=== PATIENT | male | born 1955 | race Hispanic/Latino ===

== ENCOUNTER 2020-05-15 16:27 | Inpatient (IN) | payer OTHER ==
[~2020-05-15] VITALS: Ht 165.1 cm; Wt 80.7 kg
[2020-05-15] MEDS ORDERED: FENTANYL CITRATE PF 50 MCG/1 ML 2ML VIAL ONE (16:45)
[2020-05-15] MEDS ORDERED: SODIUM CHLORIDE 0.9% 1000ML 1,000 ML IV ONE (16:45)
[2020-05-15 17:10] LABS: BASOPHILS % (AUTO) 0.2 % (0.0-5.0); EOSINOPHILS % (AUTO) 0.4 % (0.0-8.0); HEMATOCRIT 41.4 % (42-54); LYMPHOCYTES % (AUTO) 9.1 % (21.0-51.0); MEAN CORPUSCULAR HEMOGLOBIN 30.5 pg (27.0-33.0); MEAN CORPUSCULAR HGB CONC 34.8 g/dL (32.0-36.0); MEAN CORPUSCULAR VOLUME 87.7 fL (79-99); MONOCYTES % (AUTO) 8.9 % (3.0-13.0); NEUTROPHILS % (AUTO) 80.8 % (40.0-77.0); PLATELET COUNT (AUTO) 346 K/uL (130-400); RED BLOOD CELL COUNT(AUTO) 4.72 MIL/uL (4.50-6.20); RED CELL DISTRIBUTION WIDTH 11.4 % (11.0-15.5); WHITE BLOOD COUNT (AUTO) 19.3 K/uL (4.8-10.8)
[2020-05-15 17:25] LABS: CREATININE 0.8 mg/dL (0.5-1.5); POTASSIUM 4.4 mmol/L (3.5-5.1)
[2020-05-15] MEDS ORDERED: IOHEXOL-350 75 ML VIAL IV ONE (17:48)
[2020-05-15] MEDS ORDERED: ZOSYN 3.375GM+NS 50ML 50 ML IV ONE (18:08)
[2020-05-15 18:52] LABS: APPEARANCE,URINE Clear (CLEAR); BILIRUBIN,URINE Negative (NEGATIVE); COLOR,URINE Yellow (YELLOW); GLUCOSE, URINE (UA) >=1000 mg/dL (NEGATIVE); KETONES,URINE 40 mg/dL (NEGATIVE); LEUKOCYTE ESTERASE ,URINE Small (NEGATIVE); NITRATE,URINE Negative (NEGATIVE); OCCULT BLOOD,URINE Negative (NEGATIVE); PROTEIN,URINE Trace mg/dL (NEGATIVE)
[2020-05-15] MEDS ORDERED: VANCOMYCIN 1.25 GM in SODIUM CHLORIDE 0.9% 250 ML IV SCH (19:00)
[2020-05-15 19:06] LABS: BACTERIA,URINE Few /HPF (None Seen); MUCUS,URINE Few LPF (None Seen); SQUAMOUS EPITHELIAL CELL,UR Few /HPF (0-2)
[2020-05-15] MEDS ORDERED: ACETAMINOPHEN 325 MG TAB PO PRN (20:15)
[2020-05-15] MEDS ORDERED: POTASSIUM CHLORIDE 20MEQ/100ML 100 ML IV PRN ×2 (20:15)
[2020-05-15] MEDS ORDERED: POTASSIUM CHLORIDE 10% ELIXIR 20 MEQ/15 ML UDCUP PO PRN (20:15)
[2020-05-15] MEDS ORDERED: DEXTROSE 50%-WATER 50 ML DISP.SYRIN IV PRN (20:15)
[2020-05-15] MEDS ORDERED: NITROGLYCERIN 0.4 MG SL TAB SL PRN (20:15)
[2020-05-15] MEDS ORDERED: DiphenhydrAMINE HCL 50 MG/ML VIAL IV PRN (20:15)
[2020-05-15] MEDS ORDERED: VANCOMYCIN PROTOCOL PER PHARMACY IV PRN (20:15)
[2020-05-15] MEDS ORDERED: GLUCAGON 1MG KIT 1 MG ML IM PRN (20:15)
[2020-05-15] MEDS ORDERED: DIPHENHYDRAMINE HCL 25 MG CAPSULE PO PRN (20:15)
[2020-05-15] MEDS ORDERED: POTASSIUM CHLORIDE 20 MEQ ERTAB PO PRN (20:15)
[2020-05-15] MEDS ORDERED: MAG HYDROX/AL HYDROX/SIMETH ES 30 ML SUSP UDCUP PO PRN (20:15)
[2020-05-15] MEDS ORDERED: ONDANSETRON HCL 4 MG/2 ML VIAL IV PRN (20:15)
[2020-05-15] MEDS ORDERED: GUAIFENESIN-DM 200/20 MG 10 ML PO PRN (20:15)
[2020-05-15] MEDS ORDERED: VANCOMYCIN 1GM+NS 250ML 250 ML IV ONE (20:20)
[2020-05-15] MEDS: INSULIN HUMULIN R 100 UNIT/ML 3ML SQ SCH (21:00)
[2020-05-15] MEDS: HEPARIN SODIUM 5000UNIT/ML 1ML VIAL SQ SCH (21:00)
[2020-05-15] MEDS: FAMOTIDINE/PF 20 MG/2 ML VIAL IV SCH (21:00)
[2020-05-15] MEDS ORDERED: COMPOUND IV REFRIGERATED 1 EACH IVSOLN MISC PRN (21:15)
[2020-05-15] MEDS: VANCOMYCIN 750MG + NS 250 ML IV SCH ×2 (22:00)
[2020-05-15] MEDS ORDERED: HEPARIN SODIUM 5000UNIT/ML 1ML VIAL ONE (22:08)
[2020-05-15] MEDS ORDERED: HYDROMORPHONE HCL 0.5 MG/0.5 ML ML ONE (22:08)
[2020-05-15] MEDS ORDERED: FAMOTIDINE/PF 20 MG/2 ML VIAL IV ONE (22:09)
[2020-05-15] MEDS ORDERED: INSULIN HUMULIN R 100 UNIT/ML 3ML ONE (23:04)
[2020-05-16] MEDS: ZOSYN 3.375GM+NS 50ML 50 ML IV SCH ×3 (01:00→22:48)
[2020-05-16] MEDS ORDERED: ZOSYN 3.375GM+NS 50ML 50 ML IV ONE (01:25)
[2020-05-16] MEDS ORDERED: MORPHINE SULFATE 2 MG/ML 1ML SYG ONE (02:15)
[2020-05-16 04:37] LABS: BASOPHILS % (AUTO) 0.3 % (0.0-5.0); EOSINOPHILS % (AUTO) 0.4 % (0.0-8.0); HEMATOCRIT 38.9 % (42-54); LYMPHOCYTES % (AUTO) 12.3 % (21.0-51.0); MEAN CORPUSCULAR HEMOGLOBIN 30.4 pg (27.0-33.0); MEAN CORPUSCULAR HGB CONC 34.4 g/dL (32.0-36.0); MEAN CORPUSCULAR VOLUME 88.2 fL (79-99); MONOCYTES % (AUTO) 10.4 % (3.0-13.0); NEUTROPHILS % (AUTO) 75.8 % (40.0-77.0); PLATELET COUNT (AUTO) 327 K/uL (130-400); RED BLOOD CELL COUNT(AUTO) 4.41 MIL/uL (4.50-6.20); RED CELL DISTRIBUTION WIDTH 11.4 % (11.0-15.5); WHITE BLOOD COUNT (AUTO) 18.1 K/uL (4.8-10.8)
[2020-05-16 04:46] LABS: ALBUMIN 2.5 g/dL (3.5-5.0); BILIRUBIN,TOTAL 0.6 mg/dL (0.2-1.0); CREATININE 0.8 mg/dL (0.5-1.5); POTASSIUM 3.6 mmol/L (3.5-5.1); TOTAL PROTEIN, SERUM 7.1 g/dL (6.0-8.3)
[2020-05-16 04:49] LABS: HEMOGLOBIN A1C 11.7 % (4.0-6.0)
[2020-05-16 04:56] LABS: CRP QUANTITATIVE 247.6 mg/L (0.00-9.0)
[2020-05-16] MEDS ORDERED: HYDROMORPHONE HCL 0.5 MG/0.5 ML ML ONE (05:38)
[2020-05-16] MEDS: VANCOMYCIN 750MG + NS 250 ML IV SCH ×6 (06:00→22:49)
[2020-05-16] MEDS: LACTATED RINGERS 1000ML 1,000 ML IV SCH ×2 (06:15→10:29)
[2020-05-16] MEDS: INSULIN HUMULIN R 100 UNIT/ML 3ML SQ SCH ×4 (07:30→22:50)
[2020-05-16 08:26] VITALS: BP 150/80
[2020-05-16] MEDS: LISINOPRIL 10 MG TABLET PO SCH (10:31)
[2020-05-16] MEDS: HYDROMORPHONE HCL 0.5 MG/0.5 ML ML IV PRN ×2 (10:39→22:21)
[2020-05-16] MEDS: FAMOTIDINE/PF 20 MG/2 ML VIAL IV SCH ×2 (11:08→22:48)
[2020-05-16] MEDS: HEPARIN SODIUM 5000UNIT/ML 1ML VIAL SQ SCH ×2 (11:16→21:00)
[2020-05-16] MEDS: LACTULOSE 20 GM/30 ML UDCUP PO PRN (11:18)
[2020-05-16 11:48] VITALS: BP 139/65
[2020-05-16] MEDS: ACETAMINOPHEN 325 MG TAB PO PRN (16:20)
[2020-05-16 17:03] VITALS: BP 136/74
[2020-05-16] MEDS ORDERED: ATOR40TA69 PO (18:38)
[2020-05-16] MEDS ORDERED: IBUP-2077 PO (18:38)
[2020-05-16] MEDS ORDERED: LISI20TA24 PO (18:38)
[2020-05-16] MEDS ORDERED: METF500S7 PO (18:38)
[2020-05-16] MEDS ORDERED: NAPR-1023 PO (18:38)
[2020-05-16 19:54] VITALS: BP 128/73
[2020-05-16] MEDS ORDERED: IRON SUCROSE COMPLEX 100 MG in SODIUM CHLORIDE 0.9% 50 ML IV SCH (21:00)
[2020-05-17] VITALS (7 sets, daily range): BP systolic 125–156; BP diastolic 67–79
[2020-05-17] MEDS: MORPHINE SULFATE 2 MG/ML 1ML SYG IV PRN ×3 (01:16→20:55)
[2020-05-17] MEDS: HYDROMORPHONE HCL 0.5 MG/0.5 ML ML IV PRN ×4 (05:20→22:39)
[2020-05-17] MEDS: ZOSYN 3.375GM+NS 50ML 50 ML IV SCH ×3 (05:23→20:53)
[2020-05-17] MEDS: INSULIN HUMULIN R 100 UNIT/ML 3ML SQ SCH ×4 (05:31→22:42)
[2020-05-17 06:02] LABS: BASOPHILS % (AUTO) 0.3 % (0.0-5.0); EOSINOPHILS % (AUTO) 0.7 % (0.0-8.0); HEMATOCRIT 38.9 % (42-54); LYMPHOCYTES % (AUTO) 11.4 % (21.0-51.0); MEAN CORPUSCULAR HEMOGLOBIN 30.1 pg (27.0-33.0); MEAN CORPUSCULAR HGB CONC 33.7 g/dL (32.0-36.0); MEAN CORPUSCULAR VOLUME 89.4 fL (79-99); MONOCYTES % (AUTO) 10.5 % (3.0-13.0); NEUTROPHILS % (AUTO) 76.1 % (40.0-77.0); PLATELET COUNT (AUTO) 325 K/uL (130-400); RED BLOOD CELL COUNT(AUTO) 4.35 MIL/uL (4.50-6.20); RED CELL DISTRIBUTION WIDTH 11.5 % (11.0-15.5)
[2020-05-17 06:31] LABS: ALBUMIN 2.3 g/dL (3.5-5.0); BILIRUBIN,TOTAL 0.7 mg/dL (0.2-1.0); CREATININE 0.9 mg/dL (0.5-1.5); POTASSIUM 3.6 mmol/L (3.5-5.1); TOTAL PROTEIN, SERUM 7.1 g/dL (6.0-8.3)
[2020-05-17] MEDS ORDERED: SUCCINYLCHOLINE 200MG/10ML SYR ONE (07:26)
[2020-05-17] MEDS ORDERED: PROPOFOL 10 MG/ML 20ML VIAL IV ONE (07:26)
[2020-05-17] MEDS ORDERED: MIDAZOLAM HCL 1 MG/ML 2ML VIAL ONE (07:26)
[2020-05-17] MEDS ORDERED: LIDOCAINE PF 2% 5ML ABBOJECT ONE (07:26)
[2020-05-17] MEDS ORDERED: DEXAMETHASONE SOD PHOSPHATE 10MG/ML 1ML VIAL ONE (07:26)
[2020-05-17] MEDS ORDERED: FENTANYL CITRATE PF 50 MCG/1 ML 2ML VIAL ONE (07:27)
[2020-05-17] MEDS ORDERED: IRON SUCROSE COMPLEX 100 MG in SODIUM CHLORIDE 0.9% 50 ML IV SCH (09:00)
[2020-05-17] MEDS: HEPARIN SODIUM 5000UNIT/ML 1ML VIAL SQ SCH ×2 (09:00→20:54)
[2020-05-17] MEDS: FAMOTIDINE/PF 20 MG/2 ML VIAL IV SCH ×2 (10:00→20:53)
[2020-05-17] MEDS: VANCOMYCIN 1.25 GM in SODIUM CHLORIDE 0.9% 250 ML IV SCH ×2 (10:00→20:54)
[2020-05-17] MEDS: LISINOPRIL 10 MG TABLET PO SCH (10:00)
[2020-05-17] MEDS: ACETAMINOPHEN 325 MG TAB PO PRN (22:40)
[2020-05-18] VITALS (19 sets, daily range): BP systolic 121–161; BP diastolic 68–81
[2020-05-18] MEDS: ZOSYN 3.375GM+NS 50ML 50 ML IV SCH ×3 (04:27→20:48)
[2020-05-18] MEDS: HYDROMORPHONE HCL 0.5 MG/0.5 ML ML IV PRN (04:32)
[2020-05-18 05:03] LABS: BASOPHILS % (AUTO) 0.3 % (0.0-5.0); EOSINOPHILS % (AUTO) 1.5 % (0.0-8.0); HEMATOCRIT 38.3 % (42-54); LYMPHOCYTES % (AUTO) 12.9 % (21.0-51.0); MEAN CORPUSCULAR HEMOGLOBIN 30.1 pg (27.0-33.0); MEAN CORPUSCULAR HGB CONC 33.7 g/dL (32.0-36.0); MEAN CORPUSCULAR VOLUME 89.5 fL (79-99); MONOCYTES % (AUTO) 10.5 % (3.0-13.0); NEUTROPHILS % (AUTO) 73.8 % (40.0-77.0); PLATELET COUNT (AUTO) 326 K/uL (130-400); RED BLOOD CELL COUNT(AUTO) 4.28 MIL/uL (4.50-6.20); RED CELL DISTRIBUTION WIDTH 11.5 % (11.0-15.5); WHITE BLOOD COUNT (AUTO) 17.6 K/uL (4.8-10.8)
[2020-05-18 05:24] LABS: ALBUMIN 2.3 g/dL (3.5-5.0); BILIRUBIN,TOTAL 0.7 mg/dL (0.2-1.0); CREATININE 0.8 mg/dL (0.5-1.5); POTASSIUM 3.4 mmol/L (3.5-5.1); TOTAL PROTEIN, SERUM 7.1 g/dL (6.0-8.3)
[2020-05-18 05:50] LABS: CRP QUANTITATIVE 184.8 mg/L (0.00-9.0)
[2020-05-18] MEDS: MORPHINE SULFATE 2 MG/ML 1ML SYG IV PRN (05:57)
[2020-05-18] MEDS: INSULIN HUMULIN R 100 UNIT/ML 3ML SQ SCH ×4 (05:58→20:51)
[2020-05-18] MEDS: HEPARIN SODIUM 5000UNIT/ML 1ML VIAL SQ SCH ×2 (09:00→20:47)
[2020-05-18] MEDS: FAMOTIDINE/PF 20 MG/2 ML VIAL IV SCH ×2 (09:00→20:48)
[2020-05-18] MEDS: LISINOPRIL 10 MG TABLET PO SCH (09:00)
[2020-05-18] MEDS: VANCOMYCIN 1.25 GM in SODIUM CHLORIDE 0.9% 250 ML IV SCH ×2 (09:38→21:36)
[2020-05-18] MEDS ORDERED: SUCCINYLCHOLINE CHLORIDE 20 MG/ML 10 ML VIAL ONE (11:05)
[2020-05-18] MEDS ORDERED: FENTANYL CITRATE PF 50 MCG/1 ML 2ML VIAL ONE (11:05)
[2020-05-18] MEDS ORDERED: MIDAZOLAM HCL 1 MG/ML 2ML VIAL ONE ×3 (11:05→11:53)
[2020-05-18] MEDS ORDERED: LIDOCAINE HCL-MPF 1% 5ML AMP IJ ONE (11:05)
[2020-05-18] MEDS ORDERED: PROPOFOL 10 MG/ML 20ML VIAL IV ONE (11:05)
[2020-05-18] MEDS ORDERED: LIDOCAINE HCL 1% 20 ML VIAL ONE (11:27)
[2020-05-18] MEDS ORDERED: BUPIVACAINE/PF 0.25% 50ML VIAL IJ ONE (11:27)
[2020-05-18] MEDS ORDERED: CEFAZOLIN SODIUM 1 GM VIAL IRRIG ONE (11:33)
[2020-05-18] MEDS ORDERED: CHLORPROMAZINE HCL 25 MG/ML 1ML AMP IV SCH (12:45)
[2020-05-18] MEDS: CHLORPROMAZINE HCL 25 MG/ML 1ML AMP IM SCH (13:01)
[2020-05-19] VITALS (7 sets, daily range): BP systolic 118–143; BP diastolic 64–76
[2020-05-19] MEDS: ZOSYN 3.375GM+NS 50ML 50 ML IV SCH ×3 (04:22→22:00)
[2020-05-19] MEDS: ACETAMINOPHEN 325 MG TAB PO PRN (07:13)
[2020-05-19] MEDS: INSULIN HUMULIN R 100 UNIT/ML 3ML SQ SCH ×4 (07:14→21:59)
[2020-05-19] MEDS: HYDROMORPHONE HCL 0.5 MG/0.5 ML ML IV PRN ×3 (08:59→22:02)
[2020-05-19] MEDS: FAMOTIDINE/PF 20 MG/2 ML VIAL IV SCH ×2 (09:02→21:58)
[2020-05-19] MEDS: HEPARIN SODIUM 5000UNIT/ML 1ML VIAL SQ SCH ×2 (09:02→21:59)
[2020-05-19] MEDS: LISINOPRIL 10 MG TABLET PO SCH (09:03)
[2020-05-19] MEDS: VANCOMYCIN 1.25 GM in SODIUM CHLORIDE 0.9% 250 ML IV SCH ×2 (09:14→22:00)
[2020-05-19] MEDS: CHLORPROMAZINE HCL 25 MG/ML 1ML AMP IM SCH (14:02)
[2020-05-20] MEDS: HYDROMORPHONE HCL 0.5 MG/0.5 ML ML IV PRN ×3 (02:42→14:01)
[2020-05-20 03:31] VITALS: BP 143/74
[2020-05-20] MEDS: ZOSYN 3.375GM+NS 50ML 50 ML IV SCH ×3 (05:09→20:34)
[2020-05-20] MEDS: INSULIN HUMULIN R 100 UNIT/ML 3ML SQ SCH ×4 (05:50→20:36)
[2020-05-20 05:53] LABS: BASOPHILS % (AUTO) 0.3 % (0.0-5.0); EOSINOPHILS % (AUTO) 1.9 % (0.0-8.0); HEMATOCRIT 38.3 % (42-54); LYMPHOCYTES % (AUTO) 11.7 % (21.0-51.0); MEAN CORPUSCULAR HEMOGLOBIN 30.1 pg (27.0-33.0); MEAN CORPUSCULAR HGB CONC 33.2 g/dL (32.0-36.0); MEAN CORPUSCULAR VOLUME 90.8 fL (79-99); MONOCYTES % (AUTO) 8.4 % (3.0-13.0); NEUTROPHILS % (AUTO) 76.4 % (40.0-77.0); PLATELET COUNT (AUTO) 373 K/uL (130-400); RED BLOOD CELL COUNT(AUTO) 4.22 MIL/uL (4.50-6.20); RED CELL DISTRIBUTION WIDTH 11.6 % (11.0-15.5); WHITE BLOOD COUNT (AUTO) 17.2 K/uL (4.8-10.8)
[2020-05-20 06:08] LABS: CREATININE 0.9 mg/dL (0.5-1.5); POTASSIUM 3.4 mmol/L (3.5-5.1)
[2020-05-20] MEDS ORDERED: POTASSIUM CHLORIDE 10% ELIXIR 20 MEQ/15 ML UDCUP PO SCH (07:30)
[2020-05-20] MEDS: LISINOPRIL 10 MG TABLET PO SCH (08:37)
[2020-05-20] MEDS: POTASSIUM CHLORIDE 10% ELIXIR 20 MEQ/15 ML UDCUP PO SCH (08:37)
[2020-05-20] MEDS: HEPARIN SODIUM 5000UNIT/ML 1ML VIAL SQ SCH ×2 (08:38→20:35)
[2020-05-20] MEDS: FAMOTIDINE/PF 20 MG/2 ML VIAL IV SCH ×2 (08:38→20:34)
[2020-05-20] MEDS: VANCOMYCIN 1.25 GM in SODIUM CHLORIDE 0.9% 250 ML IV SCH ×2 (09:00→20:35)
[2020-05-20 09:02] VITALS: BP 145/79
[2020-05-20 11:00] VITALS: BP 141/79
[2020-05-20 16:45] VITALS: BP 139/81
[2020-05-20 20:43] VITALS: BP 163/85
[2020-05-20 20:46] VITALS: BP_SYST 109; BP_SYST 163; BP_DIAS 40; BP_DIAS 85
[2020-05-20] MEDS: MORPHINE SULFATE 2 MG/ML 1ML SYG IV PRN (23:05)
[2020-05-21] VITALS (7 sets, daily range): BP systolic 120–144; BP diastolic 62–81
[2020-05-21 04:58] LABS: BASOPHILS % (AUTO) 0.4 % (0.0-5.0); EOSINOPHILS % (AUTO) 2.6 % (0.0-8.0); HEMATOCRIT 37.3 % (42-54); LYMPHOCYTES % (AUTO) 13.8 % (21.0-51.0); MEAN CORPUSCULAR HEMOGLOBIN 30.1 pg (27.0-33.0); MEAN CORPUSCULAR HGB CONC 33.8 g/dL (32.0-36.0); MONOCYTES % (AUTO) 8.4 % (3.0-13.0); NEUTROPHILS % (AUTO) 73.4 % (40.0-77.0); PLATELET COUNT (AUTO) 390 K/uL (130-400); RED BLOOD CELL COUNT(AUTO) 4.19 MIL/uL (4.50-6.20); RED CELL DISTRIBUTION WIDTH 11.6 % (11.0-15.5); WHITE BLOOD COUNT (AUTO) 16.9 K/uL (4.8-10.8)
[2020-05-21] MEDS: ZOSYN 3.375GM+NS 50ML 50 ML IV SCH (05:02)
[2020-05-21 05:10] LABS: CREATININE 0.9 mg/dL (0.5-1.5); POTASSIUM 3.8 mmol/L (3.5-5.1)
[2020-05-21] MEDS: INSULIN HUMULIN R 100 UNIT/ML 3ML SQ SCH ×4 (06:20→20:33)
[2020-05-21] MEDS: POTASSIUM CHLORIDE 10% ELIXIR 20 MEQ/15 ML UDCUP PO SCH (06:36)
[2020-05-21] MEDS: FAMOTIDINE/PF 20 MG/2 ML VIAL IV SCH ×2 (07:53→20:31)
[2020-05-21] MEDS: VANCOMYCIN 1.25 GM in SODIUM CHLORIDE 0.9% 250 ML IV SCH (07:53)
[2020-05-21] MEDS: LISINOPRIL 10 MG TABLET PO SCH (07:53)
[2020-05-21] MEDS: HEPARIN SODIUM 5000UNIT/ML 1ML VIAL SQ SCH ×2 (07:55→20:32)
[2020-05-21] MEDS: ACETAMINOPHEN 325 MG TAB PO PRN (08:14)
[2020-05-21] MEDS ORDERED: ACETAMINOPHEN-CODEINE 300/30MG TAB ONE (15:13)
[2020-05-21] MEDS ORDERED: ACETAMINOPHEN-CODEINE 300/30MG TAB PO SCH (15:15)
[2020-05-21] MEDS: CEFUROXIME AXETIL 250 MG TABLET PO SCH (15:23)
[2020-05-21] MEDS: ACETAMINOPHEN-CODEINE 300/30MG TAB PO PRN (20:42)
[2020-05-22] MEDS: ACETAMINOPHEN-CODEINE 300/30MG TAB PO PRN ×3 (01:47→14:30)
[2020-05-22] MEDS: CEFUROXIME AXETIL 250 MG TABLET PO SCH ×2 (01:48→14:30)
[2020-05-22 03:45] VITALS: BP 133/72
[2020-05-22] MEDS: INSULIN HUMULIN R 100 UNIT/ML 3ML SQ SCH ×2 (05:23→11:50)
[2020-05-22] MEDS: LACTULOSE 20 GM/30 ML UDCUP PO PRN (05:25)
[2020-05-22 07:30] VITALS: BP 136/81
[2020-05-22] MEDS: POTASSIUM CHLORIDE 10% ELIXIR 20 MEQ/15 ML UDCUP PO SCH (07:45)
[2020-05-22] MEDS: LISINOPRIL 10 MG TABLET PO SCH (08:34)
[2020-05-22] MEDS: HEPARIN SODIUM 5000UNIT/ML 1ML VIAL SQ SCH (08:35)
[2020-05-22] MEDS: FAMOTIDINE/PF 20 MG/2 ML VIAL IV SCH (08:35)
[2020-05-22] MEDS ORDERED: Cefuroxime Axetil PO (10:55)
[2020-05-22 11:00] VITALS: BP 129/72
== END 2020-05-22 18:20 | disposition home or self-care (01) | DRG 854 ==
LOC: EDH 16:27 → EDHIP 16:28 → 3CH 05-16 08:04
PROVIDERS: ADMIT Family Medicine; ATTEND Family Medicine
PROC: 0J9C0ZZ Drainage of Pelvic Region Subcutaneous Tissue and Fascia, Open Approach (ICD-10-PCS; principal; 2020-05-20)
DX: A41.9 Sepsis, unspecified organism (principal); L02.214 Cutaneous abscess of groin; N39.0 Urinary tract infection, site not specified; L02.211 Cutaneous abscess of abdominal wall; N41.2 Abscess of prostate; E11.9 Type 2 diabetes mellitus without complications; E78.5 Hyperlipidemia, unspecified; I10 Essential (primary) hypertension; N45.1 Epididymitis; F17.210 Nicotine dependence, cigarettes, uncomplicated; I25.10 Atherosclerotic heart disease of native coronary artery without angina pectoris; K40.90 Unilateral inguinal hernia, without obstruction or gangrene, not specified as recurrent; N45.3 Epididymo-orchitis; F29 Unspecified psychosis not due to a substance or known physiological condition; N40.0 Benign prostatic hyperplasia without lower urinary tract symptoms; Z83.3 Family history of diabetes mellitus
CPT/HCPCS: 36415; 72195; 74177; 76870; 80048; 80053; 80202; 81001; 82948; 83036; 83605; 84153; 85025; 86140; 87040; 87070; 87076; 87077; 87088; 87186; 87205; 93005; A4606; A6266; G0378; J0330; J0690; J1100; J1170; J1644; J1815; J2001; J2250; J2543; J2704; J3010; J3230; J3370; J3490; J7030; J7050; J7120; Q9967

== ENCOUNTER → 2020-05-25 | Outpatient (CLI) | payer OTHER ==
[~2020-05-25] MED LIST: ATOR40TA69 PO; Cefuroxime Axetil PO; IBUP-2077 PO; LIDOCAINE HCL 2% JELLY 5 ML TP ONE; LISI20TA24 PO; METF500S7 PO; NAPR-1023 PO
== END | disposition home or self-care (01) ==
LOC: WHH 09:06
PROVIDERS: ATTEND Family Medicine
DX: T81.31XA Disruption of external operation (surgical) wound, not elsewhere classified, initial encounter (principal); E11.628 Type 2 diabetes mellitus with other skin complications; I10 Essential (primary) hypertension; E78.5 Hyperlipidemia, unspecified; F17.210 Nicotine dependence, cigarettes, uncomplicated; Z79.4 Long term (current) use of insulin; Y83.8 Other surgical procedures as the cause of abnormal reaction of the patient, or of later complication, without mention of misadventure at the time of the procedure; Y92.238 Other place in hospital as the place of occurrence of the external cause
CPT/HCPCS: 99215; A4450

== ENCOUNTER → 2020-06-08 | Outpatient (CLI) | payer OTHER ==
[~2020-06-08] MED LIST changes: +HONEY 1 APPL/ML TUBE TP ONE
== END | disposition home or self-care (01) ==
LOC: WHH 08:30
PROVIDERS: ATTEND Family Medicine
DX: T81.31XD Disruption of external operation (surgical) wound, not elsewhere classified, subsequent encounter (principal); E11.628 Type 2 diabetes mellitus with other skin complications; I10 Essential (primary) hypertension; E78.5 Hyperlipidemia, unspecified; F17.210 Nicotine dependence, cigarettes, uncomplicated; Z79.4 Long term (current) use of insulin; Y83.8 Other surgical procedures as the cause of abnormal reaction of the patient, or of later complication, without mention of misadventure at the time of the procedure
CPT/HCPCS: 99214; A4450

== ENCOUNTER → 2020-06-22 | Outpatient (CLI) | payer OTHER ==
[~2020-06-22] MED LIST changes: -HONEY 1 APPL/ML TUBE TP ONE; -LIDOCAINE HCL 2% JELLY 5 ML TP ONE
== END | disposition home or self-care (01) ==
LOC: WHH 08:45
PROVIDERS: ATTEND Family Medicine
DX: T81.31XD Disruption of external operation (surgical) wound, not elsewhere classified, subsequent encounter (principal); E11.628 Type 2 diabetes mellitus with other skin complications; I10 Essential (primary) hypertension; E78.5 Hyperlipidemia, unspecified; I25.10 Atherosclerotic heart disease of native coronary artery without angina pectoris; F17.210 Nicotine dependence, cigarettes, uncomplicated; Z79.4 Long term (current) use of insulin; Y83.8 Other surgical procedures as the cause of abnormal reaction of the patient, or of later complication, without mention of misadventure at the time of the procedure
CPT/HCPCS: 99214; A4450